=== PATIENT | male | born 1995 | race Caucasian/White ===

== ENCOUNTER 2021-04-10 17:31 | Emergency (ER) | payer BC, OTHER ==
[~2021-04-10] VITALS: Ht 165.1 cm; Wt 68.0 kg
[2021-04-10 17:52] VITALS: BP 132/82
--- NOTE | 2021-04-10 18:05 | PHYS DOC ---
Past History Past Surgical History: No Surgical History Alcohol Use: Rarely General Adult EDM: Chief Complaint: ANKLE PROBLEM HPI: HPI: ".. I was up on a ladder.. and thought it was going to fall.. .so I jumped backwards...and landed on a pile of rubble.. and inverted this left. ankle..." Patient is a 25 year old male who presents with above hx and complaints in right ankle. Patient has some obvious swelling left ankle. No upper leg tenderness. Has laxity on inversion and anterior draw. Foot squeeze is negative. Achilles tendon is intact. No other injury reported. Patient denies any travel. No specific ill contacts. No history immunosuppression. Normally healthy. Review of Systems: Review of Systems: Constitutional: Denies fever or chills Eyes: Denies change in visual acuity HENT: Denies nasal congestion or sore throat Respiratory: Denies cough or shortness of breath Cardiovascular: Denies chest pain or edema GI: Denies abdominal pain, nausea, vomiting, bloody stools or diarrhea : Denies dysuria Musculoskeletal: Complains of left ankle pain Integument: Denies rash Neurologic: Denies headache, focal weakness or sensory changes Endocrine: Denies polyuria or polydipsia Lymphatic: Denies swollen glands Psychiatric: Denies depression or anxiety Family History: Family History: Noncontributory to presentation Current Medications: Current Meds: Current Medications Medications (Trade) Dose Ordered Sig/Erna Start Time Stop Time Status Last Admin Dose Admin Morphine Sulfate (Morphine 10mg Syringe) 10 mg 1X ONCE 04/10/21 18:15 04/10/21 18:16 Allergies: Allergies: Allergies Coded Allergies Type Severity Reaction Last Updated Verified Penicillins Allergy Unknown 04/10/21 Yes Physical Exam: PE: Constitutional: Well developed, well nourished, and moderate acute distress, non-toxic appearance. [] HENT: Normocephalic, atraumatic, bilateral external ears normal, oropharynx moist, no oral exudates, nose normal. [] Eyes: PERRLA, EOMI, conjunctiva normal, no discharge. [] Neck: Normal range of motion, no tenderness, supple, no stridor. [] Cardiovascular:Heart rate regular rhythm, no murmur [] Lungs & Thorax: Bilateral breath sounds clear to auscultation [] Abdomen: Bowel sounds normal, soft, no tenderness, no masses, no pulsatile masses. [] Skin: Warm, dry, no erythema, no rash. [] Back: No tenderness, no CVA tenderness. [] Extremities: No tenderness, no cyanosis, no clubbing, ROM intact, no edema. Except findings in left ankle as per HPI Neurologic: Alert and oriented X 3, normal motor function, normal sensory function, no focal deficits noted. [] Psychologic: Affect anxious, judgement normal, mood normal. [] Current Patient Data: Vital Signs: Vital Signs Date Time Temp Pulse Resp B/P (MAP) Pulse Ox O2 Delivery O2 Flow Rate FiO2 04/10/21 17:52 99 16 132/82 99 Room Air EKG: EKG: [] Radiology/Procedures: Radiology/Procedures: [][address] [address] IMAGING REPORT Signed PATIENT: EMMIE NELSON ACCOUNT: [id number] : 1995 LOCATION: ER AGE: 25 SEX: M EXAM STATUS: REG ER ORD. PHYSICIAN: BRADLEY CLAY MD REASON: fell off ladder PROCEDURE: ANKLE LEFT 3V Left ankle 3 views. HISTORY: Fell off ladder 3 views were taken of the left ankle. There is not evidence of an acute fracture or osseous abnormality. IMPRESSION: 1. Soft tissue swelling left ankle. 2. No acute fracture. Electronically signed by: Be Coyne MD (04/10/2021 6:11 PM) [facility] DICTATED AND SIGNED BY: BE COYNE MD DATE: 04/10/211810 CC: BRADLEY CLAY MD; MERVIN ORTEGA ~MTH0 0 Heart Score: C/O Chest Pain: N/A Risk Factors: Risk Factors: DM, Current or recent (<one month) smoker, HTN, HLP, family history of CAD, obesity. Risk Scores: Score 0 - 3: 2.5% MACE over next 6 weeks - Discharge Home Score 4 - 6: 20.3% MACE over next 6 weeks - Admit for Clinical Observation Score 7 - 10: 72.7% MACE over next 6 weeks - Early Invasive Strategies Course & Med Decision Making: Course & Med Decision Making Pertinent Labs and Imaging studies reviewed. (See chart for details) Consider repeat x-ray in 2 weeks if still symptomatic. Follow-up primary care. Use ice packs. Elevate left leg whenever possible. Take Tylenol and ibuprofen for pain. For marked pain may take Vicoprofen. Must follow-up. Distal neurovascular intact after application of splint. Impression 1. Left ankle sprain strain [] Dragon Disclaimer: Dragon Disclaimer: This electronic medical record was generated, in whole or in part, using a voice recognition dictation system. Departure Departure: Referrals: MERVIN ORTEGA (PCP) Jose Disclaimer This chart was dictated in whole or in part using Voice Recognition software in a busy, high-work load, and often noisy Emergency Department environment. It may contain unintended and wholly unrecognized errors or omissions. Dragon Disclaimer This chart was dictated in whole or in part using Voice Recognition software in a busy, high-work load, and often noisy Emergency Department environment. It may contain unintended and wholly unrecognized errors or omissions. BRADLEY CLAY MD Apr 10, 2021 18:05
--- NOTE | 2021-04-10 18:14 | RAD ---
Left ankle 3 views. HISTORY: Fell off ladder 3 views were taken of the left ankle. There is not evidence of an acute fracture or osseous abnormali ty. IMPRESSION: 1. Soft tissue swelling left ankle. 2. No acute fracture. Electronically signed by: Be Coyne MD (04/10/2021 6:11 PM) [facility]
[2021-04-10] MEDS ORDERED: MORPHINE SULFATE 10 MG/ML SYRINGE. SQ ONE (18:15)
== END 2021-04-10 18:47 | disposition home or self-care (01) ==
LOC: ER 17:31
DX: S93.402A Sprain of unspecified ligament of left ankle, initial encounter (principal); Z88.0 Allergy status to penicillin; X50.9XXA Other and unspecified overexertion or strenuous movements or postures, initial encounter; Y93.89 Activity, other specified; Y92.89 Other specified places as the place of occurrence of the external cause; Y99.8 Other external cause status
CPT/HCPCS: 29515; 73610; 99283

== ENCOUNTER → 2022-01-07 | Outpatient (CLI) | payer OTHER ==
--- NOTE | 2022-01-07 14:18 | RAD ---
XR EXAM OF ANKLE_LEFT 3V 01/07/2022 Reason: TWISTED ANKLE PAIN Comparison: None Technique: 3 views left ankle Findings: No acute fracture or dislocation. Ankle mortise is congruent. No ankle joint effusion. Bone mineraliz ation is within normal limits. Impression: No acute osseous abnormality. Electronically signed by: Kaiden Holliday MD (01/07/2022 2:16 PM) [id number]
== END ==
LOC: RAD 09:07
PROVIDERS: ATTEND Physician Assistant
DX: M25.372 Other instability, left ankle (principal)
CPT/HCPCS: 73610